=== PATIENT | female | born 1990 | race Caucasian/White ===

== ENCOUNTER 2019-11-15 01:54 | Day surgery (SDC) | payer BC, SELFPAY ==
[2019-11-07 10:03] VITALS: BMI 25.7
[2019-11-15] VITALS (14 sets, daily range): BP systolic 144–171; BP diastolic 86–104; PULSE 54–100; RESP 12–110; TEMP 36.6–36.8; O2SAT 99–100
--- NOTE | 2019-11-15 11:03 | WPDANESEPPF ---
Anes - Initial Pre Proc Eval Procedure: Operation Date: 11/15/19 12:00 Proposed Procedures p Robotic Total Assisted Laparoscopic Hysterectomy - Roddy Carranza MD Date/Time: 11/15/19 11:03 Surgeon: Roddy Carranza MD Pre Op Diagnosis: Uterine Fibroid Patient Data Age: 29 Gender: F Height: 5 ft 4 in Weight: 68.04 kg Allergies Allergy/AdvReac Type Severity Reaction Status Date / Time No Known Allergies Allergy Verified 10/24/18 08:48 Home Medications Medication Instructions Recorded Confirmed Type No Home Medications 11/07/19 11/07/19 History HCG: negative Patient hx anesthesia problems: none Family hx anesthesia problems: none PMFSH Past Medical History Medical History Smoker Anes - Eval Final PreProcedure Day of Procedure 11/15/19 11:03 Patient weight: normal Heart: regular rate and rhythm Lungs: decreased breath sounds Airway: Mallampati scale class II Neurological: alert and oriented Last oral intake: >/= 8 hours ASA classification: II Emergent: no Anesthetic plan: proceed Anesthesia type and monitoring: general ETT and standard monitoring Informed Consent: The patient's anesthetic plan and its attendant risks and benefits were discussed with the patient/family/POA. Questions were solicited and answers provided to the satisfaction of the patient/family/POA.
[2019-11-15] MEDS: LACTATED RINGERS 1,000 ML 30 ML IV CONT ×2 (11:30→13:39)
--- NOTE | 2019-11-15 11:43 | WPDHPUPDATE1 ---
History and Physical Update Update Date/Time: 11/15/19 11:43 History and Physical has been reviewed, including an updated exam of the patient. There are NO changes in the patient's condition. Risks, benefits, and alternatives have been discussed and questions answered. Patient agrees to proceed with procedure.
--- NOTE | 2019-11-15 11:51 | PM.IMHP ---
H&P: HPI History of Present Illness Chief complaint: Uterine Fibroid Narrative: Tawny Turpin is a 29 year old female longstanding hx of heavy bleed and cramping. Unable to use OCP due to hx of smoking. US with fibroid. No other abN. Review of Systems Review of Systems: All systems reviewed & are unremarkable except as noted in HPI and below PMFSH Past Medical History Medical History Smoker Meds Home Medications and Allergies Home Medications Medication Instructions Recorded Confirmed Type No Home Medications 11/07/19 11/07/19 History Allergies Allergy/AdvReac Type Severity Reaction Status Date / Time No Known Allergies Allergy Verified 11/15/19 11:39 Vital Signs Vital Signs - 24 hr 11/15/19 10:52 Temperature 36.8 C Pulse Rate 62 Respiratory Rate 20 Blood Pressure 146/91 H Pulse Oximetry 100 Exam HENMT: Ears: TM's abnormal bilaterally and TMs normal General nose exam: nares abnormal and no epistaxis Mouth: No moist mucous membranes, No dry mucous membranes and No oral mucosa abnormal Eyes: General: appearance abnormal, both eyes Sclera: abnormal sclerae and normal sclerae Pupils: pupils not ERRL EOM: EOM not intact bilaterally Neck: Neck: not supple and No no JVD Thyroid: abnormal thyroid Carotids: no bruits Lymphatic: lymphadenopathy not noted : Other: uterus enlarged Neuro: General: No gait normal and No deep tendon reflexes 2+ bilaterally Speech: No normal speech Motor exam (neuro): strength not 5/5 throughout, tone not normal throughout, strength normal and abnormal movements noted Sensory Exam: No normal sensation Extrem: General: abnormal to inspection, exam abnormal as noted, no edema and no pedal edema Assessment and Plan Assessment and plan (1) Menometrorrhagia: Code(s): N92.1 - Excessive and frequent menstruation with irregular cycle Status: Acute (2) Dysmenorrhea: Code(s): N94.6 - Dysmenorrhea, unspecified Status: Acute (3) Fibroid: Code(s): D21.9 - Benign neoplasm of connective and other soft tissue, unspecified Status: Acute Additional Plan robotic hysterectomy with ovarian preservation
--- NOTE | 2019-11-15 12:00 | HP_ITS ---
DATE OF SERVICE: ADMISSION DIAGNOSES: 1. Menometrorrhagia. 2. Dysmenorrhea. 3. Uterine fibroid. The patient is a 29-year-old, 3, para 3-0-0-3, female presents with longstanding history of heavy vaginal bleeding. She has been on control pills. Due to her smoking history, she is not able to use control pills. Ultrasound revealed uterine fibroid. No other specific abnormalities were noted. She has decided to proceed with a hysterectomy with ovarian preservation. PRIOR MEDICAL HISTORY: Hypertension, epilepsy. PRIOR SURGICAL HISTORY: Vaginal delivery x3, tubal ligation, and LEEP conization for high-grade lesion of the cervix. REVIEW OF SYSTEMS: Noncontributory. FAMILY HISTORY: Noncontributory. SOCIAL HISTORY: Over a 1 pack per day smoker, stopped approximately 1 year ago. MEDICATION: No medications. ALLERGIES: NO KNOWN DRUG ALLERGIES. PHYSICAL EXAMINATION: VITAL SIGNS: Blood pressure 130/80, pulse of 88, respiratory rate 16. LUNGS: Clear to auscultation. CARDIOVASCULAR: Regular rate and rhythm without murmur. ABDOMEN: Positive bowel sounds. Soft, nontender. No guarding or rebound. EXTERNAL GENITALIA: Without lesion. Vagina, no discharge. Cervix without lesion. Uterus 8-10 week size. Adnexa nonenlarged, nontender. ASSESSMENT: 1. Menometrorrhagia. 2. Dysmenorrhea. 3. Uterine fibroid. PLAN: Proceed with robotic-assisted hysterectomy with ovarian preservation. Inocencia I MT: Jesse
[2019-11-15] MEDS: ceFAZolin 2 GM/D5W 50 ML 2 GM/50 ML BAG IVPB (12:02)
--- NOTE | 2019-11-15 13:08 | SUR.OPER ---
specimen weight 105gm cervix uterus bilateral tubes left peritubular cyst.
[2019-11-15] MEDS: LACTATED RINGERS 1,000 ML 125 ML IV CONT (15:32)
[2019-11-15] MEDS: ONDANSETRON INJ 4 MG/2 ML VIAL IV PUSH (15:33)
--- NOTE | 2019-11-15 15:56 | PC.NURSE ---
Addendum entered by Jason Harper RN 11/15/19 15:59: PT actually arrived on unit at 1456 Original Note: PT arrived on unit via bed accompanied by significant other and family . PT alert and awake and oriented to room 279. PT introductions made and plan of care discussed per post op behavioral health clinician surgery, pain management, daily care activities PT verbalized understanding of such care.
[2019-11-15] MEDS: KETOROLAC 30 MG/ML VIAL (*BKC) IV PUSH (16:49)
[2019-11-15] MEDS: NICOTINE (*PBKC) 14 MG PATCH 1 PATCH TRANSDERM (19:57)
[2019-11-16] VITALS: BP 158/94; PULSE 75; RESP 16; TEMP 36.7
[2019-11-16] MEDS: KETOROLAC 30 MG/ML VIAL (*BKC) IV PUSH (01:32)
[2019-11-16 04:45] VITALS: BP 155/92; PULSE 71; RESP 16; TEMP 36.5
[2019-11-16 05:38] LABS: Basophils Percent Auto 0.2 % (0.2-1.2); Eosinophils Percent Auto 0.3 % (0-4.4); Hematocrit 36.4 % (37.0-47.0); Hemoglobin 12.5 g/dL (12.0-15.0); Immature Granulocyte Absolute 0.04 K/mm3 (0.00-0.031); Immature Granulocyte Percent A 0.3 % (0-0.5); Lymphocytes Absolute Auto 2.14 K/mm3 (0.9-3.2); Mean Corpuscular HGB Conc 34.3 g/dl (32-36); Mean Corpuscular Hemoglobin 32.3 pg (26-34); Mean Corpuscular Volume 94.1 fl (80-100); Mean Platelet Volume 10.2 fl (7.4-10.4); Monocytes Absolute Auto 0.9 K/mm3 (0.1-0.6); Monocytes Percent Auto 6.8 % (2.6-8.5); Neutrophils Absolute Auto 9.5 K/mm3 (1.3-6.7); Neutrophils Percent Auto 75.4 % (45.5-73.1); Platelet Count Result 171 k/mm3 (150-375); Red Blood Count 3.87 M/mm3 (4.2-5.4); Red Cell Distribution Width 11.8 % (11.5-14.5); White Blood Count 12.6 K/mm3 (4.5-10.0)
--- NOTE | 2019-11-16 06:29 | OP_ITS ---
DATE OF PROCEDURE: 11/15/2019 PREOPERATIVE DIAGNOSES: 1. Menometrorrhagia. 2. Dysmenorrhea. 3. Fibroid uterus. POSTOPERATIVE DIAGNOSES: 1. Menometrorrhagia. 2. Dysmenorrhea. 3. Fibroid uterus. PROCEDURE: Robotic-assisted total laparoscopic hysterectomy. COMPLICATIONS: None. BLOOD LOSS: Minimal. ANESTHESIA: General anesthesia. FINDINGS: Mildly enlarged uterus. Tubes and ovaries without abnormality other than evidence of prior tubal ligation. DESCRIPTION OF PROCEDURE: The patient prepped in the usual manner for this procedure. Cervical instruments were placed for uterine mobility. Abdominal trocar sites were marked and then placed under direct visualization. Tested da Estefany system instruments were placed. Surgeon moved to the console. The distal portion of the fallopian tubes was cauterized and removed. Then, the utero-ovarian ligaments were cauterized and cut. Round ligament cauterized and cut and anterior and posteriorly dissected to develop the bladder flap. Uterine vessels were skeletonized, cauterized, and cut and once this was undertaken, posterior colpotomy incision was made, carried circumferentially to separate the cervix from the vaginal cuff. Uterus was delivered into the vagina. Cuff was closed using V-Loc suture from the right angle midline, left angle midline. Irrigation was undertaken. There was no bleeding. Mino was placed. Gas was allowed to escape. Incisions approximated using 4-0 Monocryl after the trocars were removed. Inocencia I MT: Jesse
[2019-11-16 08:42] VITALS: PULSE 61; RESP 16; O2SAT 99
[2019-11-16] MEDS: IBUPROFEN 600 MG TABLET PO (08:42)
--- NOTE | 2019-11-16 08:42 | PC.NURSE ---
Pt introductions made and plan of care discussed per post op edge glue machine tender surgery, pain management, daily care activities and pending discharge to home. . PT verbalized understanding of such care.
[2019-11-16] MEDS: NICOTINE (*PBKC) 14 MG PATCH 1 PATCH TRANSDERM (09:00)
[2019-11-16 09:10] VITALS: BP 166/95; PULSE 61; RESP 16; TEMP 37.7; O2SAT 99
--- NOTE | 2019-11-16 09:26 | PM.DS ---
DS: Diagnosis Admitting Diagnosis Admitting Diagnosis: Encounter for other preprocedural examination DS: Summary Time Spent with Patient Time attestation: Total time spent providing and/or coordinating discharge services: DS: Data Data Completed and Pending Pending studies at discharge: Pending at discharge 11/15/19 12:59 Surgical [PTH] Routine Labs on day of discharge: Labs from last 24 hours 11/16/19 05:29 WBC 12.6 H RBC 3.87 L Hgb 12.5 Hct 36.4 L MCV 94.1 MCH 32.3 MCHC 34.3 RDW 11.8 Plt Count 171 MPV 10.2 Immature Gran % (Auto) 0.3 Neut % (Auto) 75.4 H Lymph % (Auto) 17.0 L Ellis % (Auto) 6.8 Eos % (Auto) 0.3 Baso % (Auto) 0.2 Lymph # (Auto) 2.14 Ellis # (Auto) 0.9 H Eos # (Auto) 0.0 Baso # (Auto) 0.0 Abs Immat Gran (auto) 0.04 H Absolute Neuts (auto) 9.5 H Absolute Nucleated RBC 0.0 Nucleated RBC % 0.0 Discharge Plan Discharge Patient Disposition: Home, Self-Care Discharge Medications: No Action No Home Medications RF: 0 Primary Care Provider: PHYSICIAN,SHIPBOARD INTELLIGENCE ANALYST Attending physician on admission: Roddy Carranza
--- NOTE | 2019-11-16 09:52 | WPDANESPN ---
Anes - Prog Note Post-Op Date/Time: 11/16/19 09:52 Cardiovascular status: normal Respiratory status: normal Airway patency: baseline Mental status: baseline Post-Op hydration status: normal Vital Signs: Last Vital Signs Temp 97.7 F 11/16/19 04:45 Pulse 71 11/16/19 04:45 Resp 16 11/16/19 04:45 BP 155/92 H 11/16/19 04:45 Pulse Ox 100 11/15/19 17:30 I/O: Intake & Output 11/15/19 11/16/19 11/16/19 23:59 07:59 15:59 Intake Total 830 Output Total 500 300 Balance 330 -300 Laboratory Tests 11/16/19 05:29 11/16/19 05:29 WBC 12.6 H RBC 3.87 L Hgb 12.5 Hct 36.4 L MCV 94.1 MCH 32.3 MCHC 34.3 RDW 11.8 Plt Count 171 MPV 10.2 Immature Gran % (Auto) 0.3 Neut % (Auto) 75.4 H Lymph % (Auto) 17.0 L [place] % (Auto) 6.8 Eos % (Auto) 0.3 Baso % (Auto) 0.2 Lymph # (Auto) 2.14 [place] # (Auto) 0.9 H Eos # (Auto) 0.0 Baso # (Auto) 0.0 Abs Immat Gran (auto) 0.04 H Absolute Neuts (auto) 9.5 H Absolute Nucleated RBC 0.0 Nucleated RBC % 0.0 Post-procedural complaints: none Patient Feedback: Patient satisfied with anesthetic care.
[2019-11-16 11:35] VITALS: BP 152/82; PULSE 60; RESP 18; TEMP 36.8; O2SAT 99
--- NOTE | 2019-11-16 12:00 | PC.NURSE ---
PT received discharge instructions per protocol and verbalized understanding of such care.
--- NOTE | 2019-11-16 12:18 | PC.NURSE ---
PT discharged to home via wheelchair and taken to waiting car. Follow up appts confirmed
--- NOTE | 2019-11-16 12:32 | PC.NURSE ---
PT made aware of history of CHTN and some elevated blood pressures. PT verbalized that contact with primary physician for blood pressure evaluation and appointment was to be schedules herminio.
== END 2019-11-16 12:18 | disposition home or self-care (01) ==
LOC: ANHSURGERY 10:10 → ANHOB2 15:17
PROVIDERS: Visit Provider Obstetrics & Gynecology
PROC: (CPT 58571; principal; 2019-11-15 12:00)
DX: N92.1 Excessive and frequent menstruation with irregular cycle (principal); N94.6 Dysmenorrhea, unspecified; N80.0 Endometriosis of uterus; Z72.0 Tobacco use
CPT/HCPCS: 58571; S2900; 36415; 85025; 88307; 99199; A9270; J0131; J0690; J1100; J1200; J1885; J2250; J2405; J2704; J2710; J3010; J7030; J7120

== ENCOUNTER 2022-12-02 17:26 | Emergency (ER) | payer BC, SELFPAY ==
--- NOTE | ~2022-12-02 | CT_ITS ---
EXAMINATION: CTA brain DATE: 12/02/2022 18:56 INDICATION: family hx of SAH in 2 relatives, severe SCHWARTZ and HTN TECHNIQUE: Computed tomographic angiography (CTA) of the head was performed with 100 mL Omnipaque-350 intravenous contrast. Automated exposure control and iterative reconstruction technique were employe d. The dose-length product was 400.10 mGy-cm. Maximum intensity projection and volume rendered 3D-rec onstructions were created by the technologist on a separate workstation. COMPARISON: CT brain, same date. FINDINGS: CTA HEAD: No large vessel occlusion, aneurysm, high flow vascular malformation, nidus or extravasation. Slightl y hypoplastic right P1 segment. Prominent right posterior communicating artery. The left posterior co mmunicating artery is not visualized. Normal anterior communicating artery. The right vertebral arter y is dominant. Normal cerebral veins. Nodular mucosal thickening and retention cysts/polyps in the ma xillary sinuses. Ethmoid and sphenoid mucosal thickening. IMPRESSION: Unremarkable CTA brain findings. No cerebral artery aneurysm detected. Reviewed, dictated and finalized at location K. O BOARD OPERATOR
--- NOTE | ~2022-12-02 | CT_ITS ---
EXAMINATION: CT brain wo con DATE: 12/02/2022 18:42 INDICATION: severe SCHWARTZ, HTN . TECHNIQUE: Computed tomography (CT) of the head was performed without intravenous contrast. The mA wa s adjusted according to patient size. Iterative reconstruction technique was employed. The dose-lengt h product was 529.67 mGy-cm. COMPARISON: 12/20/2015. FINDINGS: No acute intracranial hemorrhage or extra-axial fluid collection. No hydrocephalus, mass, or herniation. No acute ischemic infarct. Unremarkable dural venous sinus attenuation. No acute osseous abnormality. Mild left maxillary, right sphenoid, and ethmoid air cell mucosal thickening, the remaining aerated s paces are clear. IMPRESSION: No acute intracranial process. Reviewed, dictated and finalized at location K. GROUND INVESTIGATOR
[2022-12-02 17:27] VITALS: BP 168/114; PULSE 112; RESP 20; TEMP 36.8; O2SAT 99
--- NOTE | 2022-12-02 18:05 | ED.GENADULT ---
HPI - General Adult General Chief complaint: Headache Stated complaint: hypertension with SCHWARTZ Time Seen by Provider: 12/02/22 17:48 History of Present Illness HPI narrative: Patient is a 32-year-old female with a history of migraine headaches and hypertension here for evaluation of severe headache yesterday. Patient states that the headache came on gradually throughout the day was present over her entire head. She states that this feels different than previous migraines. She attempted ibuprofen and Tylenol without any relief. She reports nausea but no vomiting, visual changes, fevers or chills, neck stiffness. Patient was recently diagnosed with hypertension and has had difficulties maintaining her BP is in normal range, recently had her lisinopril increased to 40 mg by her primary. She expresses concerns of her symptoms due to family history of aneurysms in her sisters. Related Data Allergies Allergy/AdvReac Type Severity Reaction Status Date / Time No Known Allergies Allergy Verified 12/02/22 17:27 Review of Systems Review of Systems: Gen: Denies fevers or chills Eyes: Denies eye pain or visual change ENT: Denies congestion Respiratory: Denies shortness of breath or cough CV: Denies chest pain or palpitations GI: Denies abdominal pain nausea, emesis or diarrhea : denies burning, urgency, frequency or hematuria Musculoskeletal: Denies back pain or muscle pain Neuro: Reports headache. Denies numbness, tingling, weakness or focal weakness Skin: Denies rash Except as documented, all other systems reviewed and negative FOR[facility]LY [facility] Past Medical History Medical History Abnormal Pap smear of cervix 12/26/15 ASCUS can't r/s HGSIL; 02/05/16 colp - LGSIL FREDERIC I; 03/05/16 LEEP - LGSIL FREDERIC I: Anxiety Depression Epilepsy HTN (hypertension) Kidney stones Migraines Smoker Surgical History Surgical History H/O LEEP (03/05/16) LGSIL FREDERIC I--margins free History of colposcopy with cervical biopsy (02/05/16) LGSIL FREDERIC I History of laparoscopy (12/19/14) dx lscope History of robot-assisted laparoscopic hysterectomy (11/15/19) RA TLH--menometrorrhagia, dysmenorrhea, fibroid uterus History of tubal ligation (09/07/13) Family History Family History (Updated 04/14/22 @ 14:43 by ELZBIETA Storm) Father Acute myocardial infarction Hypertension Mother Hypertension Malignant tumor of ovary Malignant tumor of cervix Liver disease Sibling Malignant tumor of ovary sister Aneurysm Grandparent Breast cancer maternal grandmother Other Breast cancer paternal aunt Social History Social History (Updated 04/14/22 @ 14:44 by ELZBIETA Storm) Smoking packs per day: 0.25 Smoking cigarettes per day: 5.0 Smoking status: Current every day smoker Tobacco type: cigarettes Alcohol intake: never Alcohol use details: Socially Substance use: never Substance use type: does not use Living arrangements: other Additional living arrangements comments: single Occupation/Education: occupation 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 Head: No tenderness to palpation over temporal arteries/scalp. Normocephalic and atraumatic. EYES: PERRLA/EOMI, conjunctivae clear NOSE: No nasal drainage EARS: External ear normal in appearance THROAT: Oropharynx is clear. Mucous membranes are moist. NECK: Supple. No adenopathy, no masses. RESPIRATORY: Airway patent, respirations nonlabored. Clear to auscultation bilaterally, no rales, rhonchi, wheezing. CARDIOVASCULAR: Regular rate and rhythm without murmurs, rubs, or gallops. ABDOMINAL: N
[2022-12-02 18:31] LABS: Alanine Aminotransferase 21 U/L (6-35); Albumin Level 4.1 g/dL (3.5-5.1); Alkaline Phosphatase 104 U/L (38-126); Anion Gap 8 mmol/L (8-16); Aspartate Amino Transferase 31 U/L (14-36); Bilirubin,Total 0.4 mg/dL (0.2-1.3); Blood Urea Nitrogen 13 mg/dL (7-17); Calcium 9.4 mg/dL (8.4-10.2); Carbon Dioxide 27 mmol/L (22-30); Chloride 105 mmol/L (98-107); Estimated CRCL calculation 85 ml/min; Estimated Glomerular Filt Rate > 60; Glucose 93 mg/dL (65-110); Potassium 3.4 mmol/L (3.4-5.0); Sodium 140 mmol/L (137-145)
[2022-12-02] MEDS: diphenhydrAMINE HCl INJ 50 MG/ML VIAL 12.5 MG IV PUSH (18:32)
[2022-12-02] MEDS: SODIUM CHLORIDE 0.9% IV 1,000 ML 999 ML IV CONT (18:32)
[2022-12-02 18:33] LABS: Basophils Absolute Auto 0.1 K/mm3 (0.0-0.1); Basophils Percent Auto 0.5 % (0.2-1.2); Eosinophils Absolute Auto 0.6 K/mm3 (0-0.3); Eosinophils Percent Auto 4.4 % (0-4.4); Hematocrit 33.7 % (37.0-47.0); Hemoglobin 11.8 g/dL (12.0-15.0); Immature Granulocyte Absolute 0.05 K/mm3 (0.00-0.031); Immature Granulocyte Percent A 0.4 % (0-0.5); Lymphocytes Absolute Auto 2.49 K/mm3 (0.9-3.2); Lymphocytes Percent Auto 19.2 % (18.3-44.2); Mean Corpuscular Hemoglobin 32.8 pg (26-34); Mean Corpuscular Volume 93.6 fl (80-100); Mean Platelet Volume 9.5 fl (7.4-10.4); Monocytes Absolute Auto 0.7 K/mm3 (0.1-0.6); Monocytes Percent Auto 5.6 % (2.6-8.5); Neutrophils Absolute Auto 9.1 K/mm3 (1.3-6.7); Neutrophils Percent Auto 69.9 % (45.5-73.1); Platelet Count Result 420 k/mm3 (150-375); Red Cell Distribution Width 12.3 % (11.5-14.5)
[2022-12-02] MEDS: PROCHLORPERAZINE EDISYLATE 10 MG/2 ML VIAL IV PUSH (18:34)
[2022-12-02 19:22] VITALS: BP 190/116; PULSE 94; RESP 19; O2SAT 99
--- NOTE | 2022-12-02 19:23 | PC.NURSE ---
Assumed care of pt. Report from FARHEEN Lawson
[2022-12-02] MEDS: LABETALOL HCL INJ 100 MG/20 ML VIAL 50 MG IV PUSH (19:28)
[2022-12-02 19:43] LABS: Monoscreen Negative (Negative); Negative Monotest Control Negative (Negative); Positive Monotest Control Positive (Positive)
[2022-12-02 19:51] VITALS: BP 141/74; PULSE 89; RESP 14; O2SAT 96
--- NOTE | 2022-12-02 19:54 | PC.NURSE ---
pt. pulse oxygen saturation at 87% pt. placed on 2L NC ERP made aware
--- NOTE | 2022-12-02 20:04 | PC.NURSE ---
pt. pulse oxygen was 96%-97% on RA while moving. pt. denies feeling shortness of breath. pt. tolerated walking well. ERP made aware
[2022-12-02 20:05] VITALS: BP 154/96; PULSE 89; RESP 19; O2SAT 99
== END 2022-12-02 20:05 | disposition home or self-care (01) ==
PROVIDERS: Emergency Provider Physician Assistant; PCP Nurse Practitioner Family
DX: G43.909 Migraine, unspecified, not intractable, without status migrainosus (principal); F17.210 Nicotine dependence, cigarettes, uncomplicated; F41.9 Anxiety disorder, unspecified; F32.9 Major depressive disorder, single episode, unspecified; G40.909 Epilepsy, unspecified, not intractable, without status epilepticus; I10 Essential (primary) hypertension; Z87.442 Personal history of urinary calculi
CPT/HCPCS: 36415; 70450; 70496; 80053; 81025; 85025; 86308; 96361; 96374; 96375; 99284; J0780; J1200; J7030; Q9967

== ENCOUNTER 2022-12-17 22:05 | Emergency (ER) | payer BC, SELFPAY ==
[2022-12-17 22:14] VITALS: BP 131/81; PULSE 101; RESP 20; TEMP 36.4; O2SAT 98
[2022-12-17 22:42] LABS: Alanine Aminotransferase 18 U/L (6-35); Albumin Level 3.9 g/dL (3.5-5.1); Alkaline Phosphatase 75 U/L (38-126); Anion Gap 5 mmol/L (8-16); Aspartate Amino Transferase 28 U/L (14-36); Bilirubin,Total 0.3 mg/dL (0.2-1.3); Blood Urea Nitrogen 14 mg/dL (7-17); Calcium 8.8 mg/dL (8.4-10.2); Carbon Dioxide 29 mmol/L (22-30); Chloride 101 mmol/L (98-107); Estimated CRCL calculation 85 ml/min; Estimated Glomerular Filt Rate > 60; Glucose 97 mg/dL (65-110); Lipase 191 U/L (23-300); Potassium 3.7 mmol/L (3.4-5.0); Sodium 135 mmol/L (137-145)
[2022-12-17 22:45] LABS: Hematocrit 32.4 % (37.0-47.0); Hemoglobin 10.1 g/dL (12.0-15.0); Immature Platelet Fraction Pct 3.1 % (0.9-11.2); Mean Corpuscular HGB Conc 31.2 g/dl (32-36); Mean Corpuscular Hemoglobin 31.8 pg (26-34); Mean Corpuscular Volume 101.9 fl (80-100); Mean Platelet Volume 9.6 fl (7.4-10.4); Platelet Count Result 258 k/mm3 (150-375); Red Blood Count 3.18 M/mm3 (4.2-5.4); Red Cell Distribution Width 12.9 % (11.5-14.5); White Blood Count 14.7 K/mm3 (4.5-10.0)
[2022-12-17 22:48] LABS: Appearance Urine Slightly Cloudy (Clear); Bilirubin Urine Negative (Negative); Blood Urine Trace-intact (Negative); Color Urine Yellow (Yellow); Glucose Urine UA Negative (Negative); Ketones Urine Negative (Negative); Leukocyte Esterase Ur Trace LEU/UL (Negative); Nitrate Urine Negative (Negative); Protein Urine 3+ mg/dL (Negative); Specific Grav Ur 1.025 (1.001-1.035); Urobilinogen Urine 0.2 mg/dL (<2.0)
[2022-12-17 23:01] LABS: Mucus Urine Rare /lpf; Squamous Epithelial Cell Urine Many /hpf (Few)
[2022-12-17 23:12] LABS: Add Urine Microscopic? YES
[2022-12-17 23:55] LABS: Band Neutrophils Percent 1 % (0-6); Eosinophils Absolute Manual 0.14 K/mm3 (0.02-0.5); Eosinophils Percent Manual 1 % (0-4); Large Platelets Present; Lymphocytes Absolute Manual 2.94 K/mm3 (1.1-4.5); Monocytes Absolute Manual 0.58 K/mm3 (0.1-0.90); Monocytes Percent Manual 4 % (3-9); Neutrophils Absolute Manual 11.02 K/mm3 (1.7-7.2); Neutrophils Percent Manual 74 % (46-73); Platelet Estimate Adequate (Adequate); Total Cells Counted 100
[2022-12-17 23:56] LABS: Anisocytosis 1+ (NORMAL); Burr Cells 1+ (NORMAL); Crenated RBC 1+ (NORMAL); Macrocytosis 1+ (NORMAL); Microcytosis 1+ (NORMAL); Poikilocytosis 1+ (NORMAL); Schistocytes None Seen (NORMAL)
--- NOTE | 2022-12-18 00:54 | PC.NURSE ---
no answer at triage
== END 2022-12-18 02:47 | disposition left against medical advice (07) ==
PROVIDERS: Emergency Provider Preventive Medicine Aerospace Medicine; PCP Nurse Practitioner Family
DX: R11.2 Nausea with vomiting, unspecified (principal)
CPT/HCPCS: 36415; 80053; 81001; 81025; 83690; 85025; 85055; 99199

== ENCOUNTER 2023-04-16 21:24 | Emergency (ER) | payer BC, SELFPAY ==
--- NOTE | 2023-04-16 22:20 | PC.NURSE ---
2220-NO ANSWER X 1.
--- NOTE | 2023-04-16 22:32 | PC.NURSE ---
2231-SECOND CALL. NO ANSWER.
--- NOTE | 2023-04-16 22:51 | PC.NURSE ---
4577-THIRD CALL. NO ANSWER.
== END 2023-04-16 23:23 | disposition left against medical advice (07) ==
LOC: ANHED 23:10
PROVIDERS: PCP Nurse Practitioner Family
DX: Z53.21 Procedure and treatment not carried out due to patient leaving prior to being seen by health care provider (principal)
CPT/HCPCS: 99199

== ENCOUNTER 2023-04-29 21:02 | Emergency (ER) | payer BC, SELFPAY ==
[2023-04-29 21:03] VITALS: BP 147/74; PULSE 94; RESP 15; TEMP 36.4; O2SAT 100
--- NOTE | 2023-04-29 21:21 | ECG_ITS ---
Measurements Intervals [place] Rate: 92 P: 75 CT: 157 QRS: 14 QRSD: 150 T: 92 QT: 404 QTc: 500 Interpretive Statements SINUS RHYTHM LEFT ATRIAL ENLARGEMENT [-0.15mV P WAVE IN V1/V2] LEFT BUNDLE BRANCH BLOCK [120+ ms QRS DURATION, 80+ ms Q/S IN V1/V2, 85+ ms R IN I/aVL/V5/V6] ABNORMAL ECG NO PREVIOUS ECG AVAILABLE FOR COMPARISON Electronically Signed On 04-30-2023 7:54:49 CDT by Romeo Albrecht M.D.
--- NOTE | 2023-04-29 21:23 | PC.NURSE ---
Boyfriend at bedside and reports he is unaware of pt involvement with any drugs. Also reports pt was nauseated and vomiting earlier today.
--- NOTE | 2023-04-29 21:24 | PC.NURSE ---
Pt denies any drug use but became responsive immediately after admin of Narcan.
--- NOTE | 2023-04-29 21:28 | PC.NURSE ---
Pt refuses to give urine sample and refuses catheter.
[2023-04-29 22:12] LABS: Basophils Percent Auto 0.3 % (0.2-1.2); Eosinophils Percent Auto 0.3 % (0-4.4); Hematocrit 38.7 % (37.0-47.0); Hemoglobin 12.4 g/dL (12.0-15.0); Immature Granulocyte Absolute 0.08 K/mm3 (0.00-0.031); Immature Granulocyte Percent A 0.7 % (0-0.5); Lymphocytes Absolute Auto 0.83 K/mm3 (0.9-3.2); Lymphocytes Percent Auto 7.1 % (18.3-44.2); Mean Corpuscular Hemoglobin 28.8 pg (26-34); Mean Platelet Volume 8.9 fl (7.4-10.4); Monocytes Absolute Auto 0.3 K/mm3 (0.1-0.6); Monocytes Percent Auto 2.9 % (2.6-8.5); Neutrophils Absolute Auto 10.3 K/mm3 (1.3-6.7); Neutrophils Percent Auto 88.7 % (45.5-73.1); Platelet Count Result 284 k/mm3 (150-375); Red Cell Distribution Width 13.7 % (11.5-14.5); White Blood Count 11.6 K/mm3 (4.5-10.0)
[2023-04-29 22:22] LABS: Acetaminophen < 10 ug/mL (10-30); Alanine Aminotransferase 29 U/L (6-35); Albumin Level 4.7 g/dL (3.5-5.1); Alkaline Phosphatase 71 U/L (38-126); Anion Gap 6 mmol/L (8-16); Aspartate Amino Transferase 32 U/L (14-36); Bilirubin,Total 0.3 mg/dL (0.2-1.3); Blood Urea Nitrogen 18 mg/dL (7-17); Calcium 8.8 mg/dL (8.4-10.2); Carbon Dioxide 31 mmol/L (22-30); Chloride 101 mmol/L (98-107); Estimated CRCL calculation 51 ml/min; Estimated Glomerular Filt Rate 52; Ethanol < 10 mg/dL (<10); Glucose 188 mg/dL (65-110); Potassium 4.3 mmol/L (3.4-5.0); Salicylate 1.5 mg/dL (2-20); Sodium 138 mmol/L (137-145)
--- NOTE | 2023-04-29 22:28 | ED.GENADULT ---
HPI - General Adult General Chief complaint: Overdose Stated complaint: OD Time Seen by Provider: 04/29/23 21:48 History of Present Illness HPI narrative: this is a 32-year-old female presenting to ED after being found unresponsive by her in getting a Narcan revival by EMS. Patient says that she took 2 mystery pills from her sister. She thought they were Xanax. She does not remember anything else to she came to hospital. She is not typically use opiates but does have significant issues with anxiety and depression. At this time she has no complaints. She is accompanied by her family will be with her tonight. Related Data Allergies Allergy/AdvReac Type Severity Reaction Status Date / Time No Known Allergies Allergy Verified 04/29/23 21:18 PMF Past Medical History Medical History Abnormal Pap smear of cervix 12/26/15 ASCUS can't r/s HGSIL; 02/05/16 colp - LGSIL FREDERIC I; 03/05/16 LEEP - LGSIL FREDERIC I: Anxiety Depression Epilepsy HTN (hypertension) Kidney stones Migraines Smoker Surgical History Surgical History H/O LEEP (03/05/16) LGSIL FREDERIC I--margins free History of colposcopy with cervical biopsy (02/05/16) LGSIL FREDERIC I History of laparoscopy (12/19/14) dx lscope History of robot-assisted laparoscopic hysterectomy (11/15/19) RA TLH--menometrorrhagia, dysmenorrhea, fibroid uterus History of tubal ligation (09/07/13) Family History Family History Father Acute myocardial infarction Hypertension Mother Hypertension Malignant tumor of ovary Malignant tumor of cervix Liver disease Sibling Malignant tumor of ovary sister Aneurysm Grandparent Breast cancer maternal grandmother Other Breast cancer paternal aunt Social History Social History Smoking packs per day: 0.25 Smoking cigarettes per day: 5.0 Smoking status: Current every day smoker Tobacco type: cigarettes Alcohol intake: never Alcohol use details: Socially Substance use: never Substance use type: marijuana Living arrangements: other Additional living arrangements comments: single Occupation/Education: occupation 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 Head: atraumatic. EYES: EOMI, NOSE: Atraumatic NECK: Trachea midline RESPIRATORY: No increased rate of breathing , clear to auscultation CARDIOVASCULAR: RRR, ABDOMINAL: Non-distended MUSCULOSKELETAl: No obvious deformities NEURO: Alert. Cranial nerves 2-12 grossly intact. Sensation light touch, motor function cerebellar function intact for 4 extremities. Gait exam was normal. SKIN:: Warm, dry. Normal color PSYCHIATRIC: Normal affect Course Vital Signs Vital signs: Vital Signs Temperature 97.5 F L 04/29/23 21:03 Pulse Rate 94 04/29/23 21:03 Respiratory Rate 15 04/29/23 21:03 Blood Pressure 147/74 H 04/29/23 21:03 Pulse Oximetry 100 04/29/23 21:03 Oxygen Delivery Room Air 04/29/23 21:03 Temperature 97.5 F L 04/29/23 21:03 Pulse Rate 92 04/29/23 22:46 Respiratory Rate 14 04/29/23 22:46 Blood Pressure 113/69 04/29/23 22:46 Pulse Oximetry 100 04/29/23 22:46 Oxygen Delivery Room Air 04/29/23 21:03 Medical Decision Making MDM Narrative Medical decision making narrative: -Presentation: 32-year-old female presenting with opiate overdose after taking 2 mystery pills given to her by her sister. -DDX includes but is not limited to: Opiate overdose, benzo overdose, alcohol use disorder -Co-morbidities complicating care: anxiety, depression, h
[2023-04-29 22:30] LABS: Barbiturate Screen Urine Negative (Negative); Benzodiazepines Screen Urine Negative (Negative)
[2023-04-29] MEDS: ONDANSETRON INJ 4 MG/2 ML VIAL 8 MG IV PUSH (22:37)
[2023-04-29 22:46] VITALS: BP 113/69; PULSE 92; RESP 14; O2SAT 100
[2023-04-29 22:48] LABS: Cannabinoid Screen Urine Positive (Negative); Cocaine Screen Urine Negative (Negative); Methadone Screen Urine Negative (Negative); Opiate Screen Urine Negative (Negative); Phencyclidine Screen Urine Negative (Negative)
[2023-04-29 22:57] LABS: Appearance Urine Cloudy (Clear); Bacteria Urine None Seen /hpf; Bilirubin Urine Negative (Negative); Blood Urine Negative (Negative); Color Urine Yellow (Yellow); Glucose Urine UA 3+ mg/dL (Negative); Ketones Urine Negative (Negative); Leukocyte Esterase Ur Trace LEU/UL (Negative); Need Manual Microscopic Reviewed; Nitrate Urine Negative (Negative); Protein Urine 2+ mg/dL (Negative); RBC Urine 0-2 /hpf (0-2); Specific Grav Ur 1.016 (1.001-1.035); Squamous Epithelial Cell Urine Many /hpf (Few)
[2023-04-29 23:02] LABS: Add Urine Microscopic? YES
[2023-04-29 23:11] LABS: Amphetamine Screen Urine Positive (Negative)
== END 2023-04-29 23:00 | disposition home or self-care (01) ==
PROVIDERS: Emergency Medicine; Emergency Provider Emergency Medicine; PCP Nurse Practitioner Family
DX: T40.2X1A Poisoning by other opioids, accidental (unintentional), initial encounter (principal); N17.9 Acute kidney failure, unspecified; G40.909 Epilepsy, unspecified, not intractable, without status epilepticus; I10 Essential (primary) hypertension; F32.A Depression, unspecified; F41.9 Anxiety disorder, unspecified; F17.210 Nicotine dependence, cigarettes, uncomplicated; Z87.442 Personal history of urinary calculi; Z90.710 Acquired absence of both cervix and uterus; R94.31 Abnormal electrocardiogram [ECG] [EKG]; I44.7 Left bundle-branch block, unspecified
CPT/HCPCS: 36415; 80053; 80307; 81001; 81025; 84443; 85025; 87086; 93005; 96374; 99284; J2405

== ENCOUNTER 2023-10-02 15:14 | Emergency (ER) | payer OTHER, BC, SELFPAY ==
[2023-10-02] VITALS (11 sets, daily range): BP systolic 165–172; BP diastolic 98–114; PULSE 91–103; RESP 12–32; TEMP 36.7; O2SAT 97–100
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
--- NOTE | 2023-10-02 15:24 | PC.NURSE ---
Called Lyle per pts request to update on pt being here.
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
[2023-10-02] MEDS: MORPHINE SULFATE (*CRX) 4 MG/ML INJ IV PUSH (16:18)
[2023-10-02] MEDS: ONDANSETRON INJ 4 MG/2 ML VIAL IV PUSH (16:18)
[2023-10-02 16:26] LABS: Basophils Percent Auto 0.3 % (0.2-1.2); Eosinophils Absolute Auto 0.2 K/mm3 (0-0.3); Eosinophils Percent Auto 1.8 % (0-4.4); Hematocrit 37.2 % (37.0-47.0); Hemoglobin 12.6 g/dL (12.0-15.0); Immature Granulocyte Absolute 0.06 K/mm3 (0.00-0.031); Immature Granulocyte Percent A 0.5 % (0-0.5); Lymphocytes Absolute Auto 1.63 K/mm3 (0.9-3.2); Lymphocytes Percent Auto 13.5 % (18.3-44.2); Mean Corpuscular HGB Conc 33.9 g/dl (32-36); Mean Corpuscular Hemoglobin 29.9 pg (26-34); Mean Corpuscular Volume 88.2 fl (80-100); Mean Platelet Volume 9.2 fl (7.4-10.4); Monocytes Percent Auto 8.2 % (2.6-8.5); Neutrophils Absolute Auto 9.1 K/mm3 (1.3-6.7); Neutrophils Percent Auto 75.7 % (45.5-73.1); Platelet Count Result 251 k/mm3 (150-375); Red Blood Count 4.22 M/mm3 (4.2-5.4); Red Cell Distribution Width 13.7 % (11.5-14.5); White Blood Count 12.1 K/mm3 (4.5-10.0)
[2023-10-02 16:35] LABS: Anion Gap 11 mmol/L (8-16); Blood Urea Nitrogen 17 mg/dL (7-17); Calcium 9.1 mg/dL (8.4-10.2); Carbon Dioxide 25 mmol/L (22-30); Chloride 102 mmol/L (98-107); Estimated CRCL calculation 85 ml/min; Estimated Glomerular Filt Rate > 60; Glucose 84 mg/dL (65-110); Potassium 3.8 mmol/L (3.4-5.0); Sodium 138 mmol/L (137-145)
[2023-10-02] MEDS: CYCLOBENZAPRINE HCL 10 MG TABLET PO (19:09)
[2023-10-02] MEDS: ACETAMINOPHEN 500 MG TABLET 1000 MG PO (19:09)
[2023-10-02] MEDS: IBUPROFEN 400 MG TABLET 800 MG PO (19:09)
== END 2023-10-02 19:11 | disposition home or self-care (01) ==
PROVIDERS: Emergency Provider Emergency Medicine; PCP Nurse Practitioner Family
DX: S40.812A Abrasion of left upper arm, initial encounter (principal); S16.1XXA Strain of muscle, fascia and tendon at neck level, initial encounter; S69.92XA Unspecified injury of left wrist, hand and finger(s), initial encounter; I10 Essential (primary) hypertension; G40.909 Epilepsy, unspecified, not intractable, without status epilepticus; F41.9 Anxiety disorder, unspecified; F32.A Depression, unspecified; F17.210 Nicotine dependence, cigarettes, uncomplicated; Z87.442 Personal history of urinary calculi; Z90.710 Acquired absence of both cervix and uterus; V48.5XXA Car driver injured in noncollision transport accident in traffic accident, initial encounter
CPT/HCPCS: 36415; 70450; 71260; 72125; 73060; 73110; 74177; 80048; 85025; 96374; 96375; 99284; A9270; J2270; J2405; Q9967

== ENCOUNTER 2024-03-26 16:08 | Emergency (ER) | payer BC, SELFPAY ==
[2024-03-26 16:16] VITALS: BP 177/130; PULSE 96; RESP 18; TEMP 36.8; O2SAT 100
--- NOTE | 2024-03-26 16:31 | ECG_ITS ---
SEE SCANNED COPY FOR CONFIRMED REPORT. MTDD
--- NOTE | 2024-03-26 16:38 | PC.NURSE ---
Pt reports wanting to start taking blood pressure medications again. made aware. Dr. Bala ALCANTARA for 10mg norvasc PO stat.
[2024-03-26 16:42] LABS: Basophils Percent Auto 0.3 % (0.2-1.2); Eosinophils Absolute Auto 0.1 K/mm3 (0-0.3); Eosinophils Percent Auto 0.6 % (0-4.4); Hematocrit 41.2 % (37.0-47.0); Hemoglobin 14.8 g/dL (12.0-15.0); Immature Granulocyte Absolute 0.05 K/mm3 (0.00-0.031); Immature Granulocyte Percent A 0.5 % (0-0.5); Lymphocytes Absolute Auto 1.57 K/mm3 (0.9-3.2); Lymphocytes Percent Auto 14.6 % (18.3-44.2); Mean Corpuscular HGB Conc 35.9 g/dl (32-36); Mean Corpuscular Hemoglobin 32.3 pg (26-34); Monocytes Absolute Auto 0.6 K/mm3 (0.1-0.6); Monocytes Percent Auto 5.8 % (2.6-8.5); Neutrophils Absolute Auto 8.4 K/mm3 (1.3-6.7); Neutrophils Percent Auto 78.2 % (45.5-73.1); Platelet Count Result 232 k/mm3 (150-375); Red Blood Count 4.58 M/mm3 (4.2-5.4); Red Cell Distribution Width 11.5 % (11.5-14.5); White Blood Count 10.8 K/mm3 (4.5-10.0)
[2024-03-26 16:51] LABS: Ethanol < 10 mg/dL (<10)
[2024-03-26 16:53] LABS: Alanine Aminotransferase 15 U/L (6-35); Albumin Level 4.8 g/dL (3.5-5.1); Alkaline Phosphatase 76 U/L (38-126); Anion Gap 10 mmol/L (4-12); Aspartate Amino Transferase 31 U/L (14-36); Bilirubin,Total 0.7 mg/dL (0.2-1.3); Blood Urea Nitrogen 14 mg/dL (7-17); Calcium 9.4 mg/dL (8.4-10.2); Carbon Dioxide 22 mmol/L (22-30); Chloride 109 mmol/L (98-107); Estimated CRCL calculation 68 ml/min; Estimated Glomerular Filt Rate > 60; Glucose 94 mg/dL (65-110); Sodium 141 mmol/L (137-145)
[2024-03-26 16:57] LABS: Appearance Urine Cloudy (Clear); Bacteria Urine 4+ /hpf; Bilirubin Urine 1+ (Negative); Blood Urine Trace (Negative); Color Urine Dark Yellow (Yellow); Glucose Urine UA Negative (Negative); Ketones Urine 1+ mg/dL (Negative); Leukocyte Esterase Ur Negative LEU/UL (Negative); Mucus Urine Present /lpf; Need Manual Microscopic Reviewed; Nitrate Urine Positive (Negative); Non Pathogenic Casts >20; Protein Urine 3+ mg/dL (Negative); RBC Urine 0-2 /hpf (0-2); Specific Grav Ur 1.029 (1.001-1.035); Squamous Epithelial Cell Urine Many /hpf (Few); pH Urine 5.5 (5.0-9.0)
[2024-03-26 16:58] LABS: Add Urine Microscopic? YES
[2024-03-26] MEDS: amLODIPine BESYLATE 5 MG TABLET 10 MG PO (16:59)
[2024-03-26 17:07] LABS: Barbiturate Screen Urine Negative (Negative); Benzodiazepines Screen Urine Negative (Negative)
[2024-03-26 17:14] LABS: Cannabinoid Screen Urine Positive (Negative); Cocaine Screen Urine Negative (Negative); Methadone Screen Urine Negative (Negative); Opiate Screen Urine Negative (Negative); Phencyclidine Screen Urine Negative (Negative)
[2024-03-26] MEDS: POTASSIUM CHLORIDE 20 MEQ PACKET (FOR LIQUID) 40 MEQ PO (17:20)
[2024-03-26 17:45] LABS: Amphetamine Screen Urine Positive (Negative)
[2024-03-26 18:16] VITALS: BP 160/115; PULSE 96; RESP 18; O2SAT 98
[2024-03-26 18:20] LABS: Influenza A QL RT-PCR Negative (Negative); Influenza B QL RT-PCR Negative (Negative); RSV RNA, RT-PCR Negative (Negative); SARS-CoV-2 RNA PCR Negative (Negative)
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
--- NOTE | 2024-03-26 19:11 | PC.NURSE ---
crisis at bedside
--- NOTE | 2024-03-26 19:19 | PC.NURSE ---
this rn assumed care of patient. this rn took patient report from Cameron Perez.
== END 2024-03-26 19:47 | disposition home or self-care (01) ==
PROVIDERS: Emergency Provider Family Medicine; PCP Nurse Practitioner Family
DX: F32.A Depression, unspecified (principal); I10 Essential (primary) hypertension; F15.10 Other stimulant abuse, uncomplicated; N39.0 Urinary tract infection, site not specified
CPT/HCPCS: 36415; 80053; 80307; 81001; 81025; 84443; 85025; 87077; 87086; 87088; 87186; 87637; 93005; 99284; A9270

== ENCOUNTER 2024-04-06 00:27 | Emergency (ER) | payer BC, SELFPAY ==
[2024-04-06 00:28] VITALS: BP 155/84; PULSE 63; RESP 14; TEMP 36.6; O2SAT 100
--- NOTE | 2024-04-06 00:41 | ED.DENTAL ---
HPI - Dental/Oral General Chief complaint: Dental/Oral Stated complaint: tooth pain/headache Time Seen by Provider: 04/06/24 00:31 History of Present Illness HPI Narrative: 33-year-old female presents to the emergency department for right upper dental pain that started a few days ago. States it is now radiating up into her gnosticist and in front and behind her right ear which prompted her to come to the ED. her tooth hurts when touched. She denies difficulty breathing or swallowing, fever, vision changes or focal numbness or weakness, head injury or loss of consciousness. She does have a dentist and is planning to schedule an appointment with them. She took 800 mg of ibuprofen prior to arrival and states that has helped quite a bit with her pain. Related Data Allergies Allergy/AdvReac Type Severity Reaction Status Date / Time No Known Allergies Allergy Verified 10/02/23 15:16 Review of Systems Review of Systems: CONSTITUTIONAL: Denies fever, chills, or sweats. EYES: Denies visual changes, redness, or discharge. ENT: See HPI CARDIOVASCULAR: Denies chest pain, palpitations, or edema. RESPIRATORY: Denies cough or dyspnea. GASTROINTESTINAL: Denies abdominal pain, nausea, vomiting, or diarrhea. GENITOURINARY: Denies dysuria or hematuria. SKIN: Denies rash or itching. MUSCULOSKELETAL: Denies back pain, joint pain, or myalgia. NEUROLOGIC: See HPI PSYCHIATRIC: Denies anxiety or depression. [facility] Past Medical History Medical History Abnormal Pap smear of cervix 12/26/15 ASCUS can't r/s HGSIL; 02/05/16 colp - LGSIL FREDERIC I; 03/05/16 LEEP - LGSIL FREDERIC I: Anxiety Depression Epilepsy HTN (hypertension) Kidney stones Migraines Smoker Surgical History Surgical History H/O LEEP (03/05/16) LGSIL FREDERIC I--margins free History of colposcopy with cervical biopsy (02/05/16) LGSIL FREDERIC I History of laparoscopy (12/19/14) dx lscope History of robot-assisted laparoscopic hysterectomy (11/15/19) RA TLH--menometrorrhagia, dysmenorrhea, fibroid uterus History of tubal ligation (10/31/13) Family History Family History Father Acute myocardial infarction Hypertension Mother Hypertension Malignant tumor of ovary Malignant tumor of cervix Liver disease Sibling Malignant tumor of ovary sister Aneurysm Grandparent Breast cancer maternal grandmother Other Breast cancer paternal aunt Social History Social History Smoking packs per day: 0.25 Smoking cigarettes per day: 5.0 Smoking status: Current every day smoker Tobacco type: cigarettes Alcohol intake: never Alcohol use details: Socially Substance use: never Substance use type: marijuana Living arrangements: other Additional living arrangements comments: single Occupation/Education: occupation 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 HEAD: Normocephalic, atraumatic. EYES: PERRLA and EOMI. ENT: Nares clear, no rhinorrhea or epistaxis. Mucous membranes moist. Right upper molar with significant plaque and caries. Tender to palpation. No periapical abscess. No maxillary or mandibular edema. Floor of mouth is soft without crepitus. No dysphagia. Patient tolerates secretions. Airway intact. Bilateral TMs are pearson nonbulging, right TM with effusion. Canals are normal. No pain with movement of auricles No significant mastoid tenderness.. NECK: Supple. CHEST: Clear to auscultation. No respiratory distress. HEART: Regular rate and rhythm. No murmur hear
[2024-04-06] MEDS: ACETAMINOPHEN 500 MG TABLET 1000 MG PO (00:58)
[2024-04-06] MEDS: AMOXICILLIN/CLAVULANATE K 875-125 MG TAB 1 TABLET PO (00:59)
== END 2024-04-06 01:03 | disposition home or self-care (01) ==
PROVIDERS: Emergency Provider Physician Assistant; PCP Nurse Practitioner Family
DX: K08.89 Other specified disorders of teeth and supporting structures (principal); G40.909 Epilepsy, unspecified, not intractable, without status epilepticus; I10 Essential (primary) hypertension; F32.A Depression, unspecified; F41.9 Anxiety disorder, unspecified; F17.210 Nicotine dependence, cigarettes, uncomplicated; Z87.442 Personal history of urinary calculi; Z90.710 Acquired absence of both cervix and uterus; Z79.899 Other long term (current) drug therapy
CPT/HCPCS: 99283; A9270

== ENCOUNTER 2024-06-04 00:29 | Emergency (ER) | payer BC, SELFPAY ==
[2024-06-04 00:27] VITALS: BP 165/140; PULSE 100; RESP 21; TEMP 36.6; O2SAT 100
[2024-06-04 00:33] VITALS: BP 149/105; PULSE 87; PULSE 93; RESP 13; O2SAT 100
--- NOTE | 2024-06-04 00:33 | ECG_ITS ---
Test Date: 2024-06-04 00:33:02 Measurements Intervals [place] Rate: 87 P: 64 LA: 169 QRS: 28 QRSD: 158 T: 190 QT: 410 QTc: 496 Interpretive Statements SINUS RHYTHM LEFT BUNDLE BRANCH BLOCK ABNORMAL ECG No previous ECG available for comparison Electronically Signed On 06-04-2024 07:54:38 CDT by Andres Garcia D.O.
--- NOTE | 2024-06-04 00:36 | ED.CHESTPAIN ---
HPI - Chest Pain General Chief Complaint: Chest Pain Stated Complaint: sick Time Seen by Provider: 06/04/24 00:33 Source: patient and RN notes reviewed Mode of arrival: ambulatory Limitations: no limitations History of Present Illness HPI narrative: Tawny is a 33-year-old female patient presenting to the emergency room today with complaints of left-sided chest tightness. When asked how long this has been going on patient states this been going on for a few days. Did smoke weed prior to arrival and had some throat tightness at this prompted her to call EMS for transport to the emergency room. She denies any cardiac history. She is concerned that she may have a urinary tract infection. She states she is having burning and frequency with urination however she cannot tell me how long that has been going on. History of hypertension,anxiety and depression. Related Data Allergies Allergy/AdvReac Type Severity Reaction Status Date / Time No Known Allergies Allergy Verified 10/02/23 15:16 Review of Systems Review of Systems: Pertinent positives per HPI. Patient denies any fever, chills, rash, headache, visual changes, dizziness, cough, runny nose, sore throat, shortness of breath, palpitations, nausea, vomiting, diarrhea, constipation, abdominal pain, or any urinary issues. PMFSH Past Medical History Medical History Abnormal Pap smear of cervix 12/26/15 ASCUS can't r/s HGSIL; 02/05/16 colp - LGSIL FREDERIC I; 03/05/16 LEEP - LGSIL FREDERIC I: Anxiety Depression Epilepsy HTN (hypertension) Kidney stones Migraines Smoker Surgical History Surgical History H/O LEEP (03/05/16) LGSIL FREDERIC I--margins free History of colposcopy with cervical biopsy (02/05/16) LGSIL FREDERIC I History of laparoscopy (12/19/14) dx lscope History of robot-assisted laparoscopic hysterectomy (11/15/19) RA TLH--menometrorrhagia, dysmenorrhea, fibroid uterus History of tubal ligation (09/07/13) Family History Family History Father Acute myocardial infarction Hypertension Mother Hypertension Malignant tumor of ovary Malignant tumor of cervix Liver disease Sibling Malignant tumor of ovary sister Aneurysm Grandparent Breast cancer maternal grandmother Other Breast cancer paternal aunt Social History Social History Smoking packs per day: 0.25 Smoking cigarettes per day: 5.0 Smoking status: Current every day smoker Tobacco type: cigarettes Alcohol intake: never Alcohol use details: Socially Substance use: never Substance use type: marijuana Living arrangements: other Additional living arrangements comments: single Occupation/Education: occupation 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 There is no relevant family history pertinent to the patient complaint. Exam Narrative: General: Well-developed, well nourished, in no apparent distress Head: Normocephalic, atraumatic. Chest wall: Even rise and fall of the chest wall with respirations, tenderness to palpation over the left anterior chest wall Cardio: Regular rate and rhythm, s1 and s2 normal, no murmur appreciated. Resp: Clear to auscultation bilaterally, no rhonchi, rales, wheezing or rubs. Extremities: No deformity, no edema, no cyanosis, capillary refill less than 2 seconds, peripheral pulses palpable and strong. Integumentary: [place], warm, and dry, intact without lesion, no rashes. Course Course [place]
[2024-06-04 00:45] LABS: Basophils Absolute Auto 0.1 K/mm3 (0.0-0.1); Basophils Percent Auto 0.8 % (0.2-1.2); Eosinophils Absolute Auto 0.4 K/mm3 (0-0.3); Eosinophils Percent Auto 4.7 % (0-4.4); Hematocrit 34.1 % (37.0-47.0); Hemoglobin 12.6 g/dL (12.0-15.0); Immature Granulocyte Absolute 0.01 K/mm3 (0.00-0.031); Immature Granulocyte Percent A 0.1 % (0-0.5); Lymphocytes Absolute Auto 2.91 K/mm3 (0.9-3.2); Lymphocytes Percent Auto 38.2 % (18.3-44.2); Mean Corpuscular Hemoglobin 33.2 pg (26-34); Mean Corpuscular Volume 89.7 fl (80-100); Mean Platelet Volume 10.2 fl (7.4-10.4); Monocytes Absolute Auto 0.9 K/mm3 (0.1-0.6); Monocytes Percent Auto 11.2 % (2.6-8.5); Neutrophils Absolute Auto 3.4 K/mm3 (1.3-6.7); Platelet Count Result 238 k/mm3 (150-375); Red Cell Distribution Width 11.6 % (11.5-14.5); White Blood Count 7.6 K/mm3 (4.5-10.0)
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
[2024-06-04 01:01] LABS: INR 1.1; Prothrombin Time 14.7 Seconds (11.1-14.7)
[2024-06-04 01:02] LABS: Partial Thromboplastin Time 32.4 Seconds (22.3-36.8)
[2024-06-04 01:06] LABS: Alanine Aminotransferase 17 U/L (6-35); Albumin Level 4.4 g/dL (3.5-5.1); Alkaline Phosphatase 52 U/L (38-126); Anion Gap 10 mmol/L (4-12); Aspartate Amino Transferase 37 U/L (14-36); Bilirubin,Total 0.4 mg/dL (0.2-1.3); Blood Urea Nitrogen 12 mg/dL (7-17); Calcium 9.6 mg/dL (8.4-10.2); Carbon Dioxide 23 mmol/L (22-30); Chloride 107 mmol/L (98-107); Estimated CRCL calculation 75 ml/min; Estimated Glomerular Filt Rate > 60; Glucose 110 mg/dL (65-110); Lipase 200 U/L (23-300); Potassium 3.6 mmol/L (3.4-5.0); Sodium 140 mmol/L (137-145)
[2024-06-04 01:20] LABS: Troponin I 0.038 ng/mL (0.000-0.034)
--- NOTE | 2024-06-04 01:22 | PC.NURSE ---
Critical troponin called to this RN by lab. attempted to call patient to recommend that she return to the ER. left message
== END 2024-06-04 00:51 | disposition left against medical advice (07) ==
PROVIDERS: Student in an Organized Health Care Education/Training Program; Emergency Provider Nurse Practitioner Family; PCP Nurse Practitioner Family
DX: R07.89 Other chest pain (principal); G40.909 Epilepsy, unspecified, not intractable, without status epilepticus; I10 Essential (primary) hypertension; F32.A Depression, unspecified; F41.9 Anxiety disorder, unspecified; F17.210 Nicotine dependence, cigarettes, uncomplicated; Z87.442 Personal history of urinary calculi; Z90.710 Acquired absence of both cervix and uterus; Z79.899 Other long term (current) drug therapy; I44.7 Left bundle-branch block, unspecified
CPT/HCPCS: 36415; 80053; 83690; 84484; 85025; 85610; 85730; 93005; 99284

== ENCOUNTER 2024-06-04 10:33 | Emergency (ER) | payer BC, SELFPAY ==
--- NOTE | ~2024-06-04 | XR_ITS ---
XR chest 1V portable DATE: 06/04/2024 11:27 INDICATION: Shortness of breath TECHNIQUE: Portable upright AP chest on 06/04/2024 at 1121 hours COMPARISON: 10/02/2023 CT chest abdomen pelvis FINDINGS: No pulmonary infiltrate or consolidation, pleural effusion or pulmonary vascular congestion or pneumothorax. Heart size is probably within normal limits considering magnification associated wi th AP projection. Included skeletal structures are unremarkable other than minimal thoracic and mild lumbar scoliosis. IMPRESSION: No active pulmonary disease Reviewed, dictated and finalized at location J. IMPRESSION: No active pulmonary disease
[2024-06-04 10:32] VITALS: BP 150/108; PULSE 76; RESP 20; TEMP 36.4; O2SAT 100
[2024-06-04 10:39] VITALS: BP 150/108; PULSE 88; RESP 18; O2SAT 100
--- NOTE | 2024-06-04 10:43 | ECG_ITS ---
Test Date: 2024-06-04 10:50:10 Measurements Intervals [place] Rate: 74 P: 75 MS: 181 QRS: 26 QRSD: 157 T: 183 QT: 448 QTc: 497 Interpretive Statements SINUS RHYTHM LEFT BUNDLE BRANCH BLOCK ABNORMAL ECG Compared to ECG 06/04/2024 00:33:02 No significant changes Electronically Signed On 06-04-2024 12:43:54 CDT by Andres Garcia D.O.
--- NOTE | 2024-06-04 10:45 | ED.GENADULT ---
HPI - General Adult General Chief complaint: Allergic Reaction Stated complaint: allergic reaction History of Present Illness HPI narrative: 33-year-old female presents emergency department for evaluation for throat swelling and concerned that she was poisoned. Patient was seen in the emergency department yesterday complaining of chest pain, patient's EKG showed a left bundle branch block and patient did have an elevated troponin. Prior to completing her workup last night patient did elope from the emergency department due to concerns that she was poisoned by the saline flush. Patient called EMS this morning concern for facial swelling and throat swelling upon arrival emergency department patient denies any current chest pain. Related Data Allergies Allergy/AdvReac Type Severity Reaction Status Date / Time No Known Allergies Allergy Verified 10/02/23 15:16 Review of Systems Review of Systems: All systems reviewed & are unremarkable except as noted in HPI and below PMFSH Past Medical History Medical History Abnormal Pap smear of cervix 12/26/15 ASCUS can't r/s HGSIL; 02/05/16 colp - LGSIL FREDERIC I; 03/05/16 LEEP - LGSIL FREDERIC I: Anxiety Depression Epilepsy HTN (hypertension) Kidney stones Migraines Smoker Surgical History Surgical History H/O LEEP (03/05/16) LGSIL FREDERIC I--margins free History of colposcopy with cervical biopsy (02/05/16) LGSIL FREDERIC I History of laparoscopy (12/19/14) dx lscope History of robot-assisted laparoscopic hysterectomy (11/15/19) RA TLH--menometrorrhagia, dysmenorrhea, fibroid uterus History of tubal ligation (09/07/13) Family History Family History Father Acute myocardial infarction Hypertension Mother Hypertension Malignant tumor of ovary Malignant tumor of cervix Liver disease Sibling Malignant tumor of ovary sister Aneurysm Grandparent Breast cancer maternal grandmother Other Breast cancer paternal aunt Social History Social History Smoking packs per day: 0.25 Smoking cigarettes per day: 5.0 Smoking status: Current every day smoker Tobacco type: cigarettes Alcohol intake: never Alcohol use details: Socially Substance use: never Substance use type: unknown Living arrangements: other Additional living arrangements comments: single Occupation/Education: occupation 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 HEAD: normocephalic, atraumatic. EYES: PERRLA/EOMI, conjunctivae clear. NOSE: Normal no drainage EARS:TMS clear with good light reflex. THROAT: Pharynx clear, no exudate. NECK: Supple. No adenopathy, no masses. RESPIRATORY: Airway patent, respirations nonlabored. Clear to auscultation bilaterally, no rales, rhonchi, wheezing. CARDIOVASCULAR: Regular rate and rhythm without murmurs rubs or gallops. ABDOMINAL: Soft, nontender, nondistended, normal bowel sounds MUSCULOSKELETAL: Moves all extremities. Strength/ROM intact, No edema, No calf tenderness. NEURO: Alert. Cranial nerves II through XII intact. Grossly intact SKIN: Warm, dry. Normal Color PSYCHIATRIC: Anxious affect Course Course Emergency Course: Patient left AMA Vital Signs Vital signs: Vital Signs Temperature 97.6 F 06/04/24 10:32 Pulse Rate 76 06/04/24 10:32 Respiratory Rate 20 06/04/24 10:32 Blood Pressure 150/108 H 06/04/24 10:32 Pulse Oximetry 100 06/04/24 10:32 Oxygen Delivery Room Air 06/04/24 10:32 Temperature 97.6 F 06/04/24 10:32 Pulse
[2024-06-04 10:46] VITALS: BP 152/101; PULSE 73; RESP 18; O2SAT 99
[2024-06-04 10:56] VITALS: O2SAT 100
[2024-06-04 10:58] LABS: Basophils Percent Auto 0.6 % (0.2-1.2); Eosinophils Absolute Auto 0.2 K/mm3 (0-0.3); Eosinophils Percent Auto 3.6 % (0-4.4); Hematocrit 35.6 % (37.0-47.0); Hemoglobin 12.9 g/dL (12.0-15.0); Immature Granulocyte Absolute 0.02 K/mm3 (0.00-0.031); Immature Granulocyte Percent A 0.3 % (0-0.5); Lymphocytes Absolute Auto 1.94 K/mm3 (0.9-3.2); Mean Corpuscular HGB Conc 36.2 g/dl (32-36); Mean Corpuscular Hemoglobin 32.6 pg (26-34); Mean Corpuscular Volume 89.9 fl (80-100); Mean Platelet Volume 9.8 fl (7.4-10.4); Monocytes Absolute Auto 0.7 K/mm3 (0.1-0.6); Monocytes Percent Auto 10.6 % (2.6-8.5); Neutrophils Absolute Auto 3.8 K/mm3 (1.3-6.7); Neutrophils Percent Auto 55.9 % (45.5-73.1); Platelet Count Result 226 k/mm3 (150-375); Red Blood Count 3.96 M/mm3 (4.2-5.4); Red Cell Distribution Width 11.5 % (11.5-14.5); White Blood Count 6.7 K/mm3 (4.5-10.0)
[2024-06-04 11:01] VITALS: BP 144/105; PULSE 76; RESP 20; O2SAT 100
[2024-06-04 11:11] LABS: Alanine Aminotransferase 18 U/L (6-35); Albumin Level 4.4 g/dL (3.5-5.1); Alkaline Phosphatase 55 U/L (38-126); Anion Gap 10 mmol/L (4-12); Aspartate Amino Transferase 38 U/L (14-36); Bilirubin,Total 0.5 mg/dL (0.2-1.3); Blood Urea Nitrogen 11 mg/dL (7-17); Calcium 8.9 mg/dL (8.4-10.2); Carbon Dioxide 25 mmol/L (22-30); Chloride 106 mmol/L (98-107); Estimated CRCL calculation 84 ml/min; Estimated Glomerular Filt Rate > 60; Glucose 103 mg/dL (65-110); INR 1.1; Partial Thromboplastin Time 32.2 Seconds (22.3-36.8); Potassium 3.3 mmol/L (3.4-5.0); Prothrombin Time 14.2 Seconds (11.1-14.7); Sodium 141 mmol/L (137-145)
[2024-06-04 11:14] LABS: D Dimer < 0.27 ug/mL (<0.48)
[2024-06-04 11:16] VITALS: BP 159/104; PULSE 72; RESP 16; O2SAT 100
[2024-06-04 11:22] LABS: NT Pro B Type Natriuretic Pept 1860 pg/mL (19.9-100); Troponin I 0.027 ng/mL (0.000-0.034)
[2024-06-04 12:58] LABS: Influenza A QL RT-PCR Negative (Negative); Influenza B QL RT-PCR Negative (Negative); RSV RNA, RT-PCR Negative (Negative); SARS-CoV-2 RNA PCR Negative (Negative)
--- NOTE | 2024-06-04 13:34 | ECG_ITS ---
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
--- NOTE | 2024-06-04 13:48 | PC.NURSE ---
this RN walked into pt room to get 3hr trop and EKG, upon arrival pt was crying and yelled at this RN you're trying to kill me this RN educated pt thats not what is happening. this RN told the pt that the blood and EKG is to look at her heart. pt consented to this being done but was still crying and upset pt known to have a psychiatric history and per EMS pt significant other (who is not at the bedside) stated hugo was at the house for a pt eval due to an episode yesterday morning, no further information was given. EDP Dr Norman is aware of pt statements. VSS.
[2024-06-04 14:14] LABS: Troponin I 0.026 ng/mL (0.000-0.034)
== END 2024-06-04 14:05 | disposition left against medical advice (07) ==
PROVIDERS: Emergency Provider Emergency Medicine
DX: R79.89 Other specified abnormal findings of blood chemistry (principal); Z20.822 Contact with and (suspected) exposure to COVID-19; G40.909 Epilepsy, unspecified, not intractable, without status epilepticus; I10 Essential (primary) hypertension; F41.9 Anxiety disorder, unspecified; F32.A Depression, unspecified; F17.210 Nicotine dependence, cigarettes, uncomplicated; Z87.442 Personal history of urinary calculi; Z90.710 Acquired absence of both cervix and uterus; Z79.899 Other long term (current) drug therapy; I44.7 Left bundle-branch block, unspecified
CPT/HCPCS: 36415; 71045; 80053; 83690; 83880; 84484; 85025; 85380; 85610; 85730; 87637; 93005; 99284